=== PATIENT | male | born 1940 | race Caucasian/White ===

== ENCOUNTER → 2016-09-10 | Outpatient (CLI) | payer BC ==
[~2016-09-10] MED LIST: AMLO-114 PO; ASPI81TA25 PO; GEMF600T3 PO; INSDGI SC; INSUINJ14 SC; INSUINJ4 SQ; NVLG SC; NVLGI SC; SIMV80TA5 PO; VALS320T2 PO
[2016-09-10 12:54] LABS: BASO ABS # 0.06 K/uL (0-0.2); COMPLETE YES; HEMATOCRIT 42.2 % (42-52); IG% 0.2 %; LYMPH % 24.1 %; LYMPH ABS # 1.45 K/uL (1.2-3.4); MEAN CELL VOLUME 86.1 fL (80-100); MEAN CORPUSCULAR HEMOGLOBIN 29.4 pg (25-34); MEAN CORPUSCULAR HGB CONC 34.1 g/dl (32-36); MEAN PLATELET VOLUME 10.6 fL (7.4-10.4); NEUT % 54.7 %; PLATELET COUNT 292 K/uL (130-400); WHITE BLOOD COUNT 6.02 K/uL (4.8-10.8)
[2016-09-10 13:03] LABS: ALT/SGPT 27 U/L (12-78); BLOOD UREA NITROGEN 20 mg/dl (7-18); BUN/CREATININE RATIO 15.2 (10-20); CALCIUM 9.6 mg/dl (8.5-10.1); CARBON DIOXIDE 29 mmol/L (21-32); CHLORIDE 104 mmol/L (98-107); CHOLESTEROL 133 mg/dl (0-200); GLUCOSE 142 mg/dl (70-99); POTASSIUM 3.9 mmol/L (3.5-5.1); SODIUM 138 mmol/L (136-145); TRIGLYCERIDES 74 mg/dl (0-150); VERY LOW DENSITY LIPOPROT CALC 15 mg/dl
[2016-09-10 13:05] LABS: ESTIMATED AVERAGE GLUCOSE 128 mg/dl; HA1C FLAG Normal (Normal)
[2016-09-10 13:13] LABS: AST/SGOT 18 U/L (15-37); CHOLESTEROL/HDL RATIO 2.4; HDL CHOLESTEROL 55 mg/dl; LDL CHOLESTEROL CALCULATED 63 mg/dl
[2016-09-10 13:39] LABS: RATIO 4.3 mcg/mg (0-30.0)
== END | disposition home or self-care (01) ==
LOC: C.LAB1850 10:53
PROVIDERS: ATTEND Internal Medicine
DX: E11.9 Type 2 diabetes mellitus without complications (principal)

== ENCOUNTER → 2017-03-01 | Outpatient (CLI) | payer BC ==
[2017-03-01 18:01] LABS: ESTIMATED AVERAGE GLUCOSE 123 mg/dl; HA1C FLAG Normal (Normal)
--- NOTE | 2017-03-08 10:14 | CODING QUERY MEDICAL NECESSITY ---
CQSUPPORTING DIAGNOSIS NEEDED A supporting diagnosis is required for the test/procedure performed on this patient in order for us to be reimbursed by the patient's insurance. Please provide a supporting diagnosis for the following test/procedure listed below next to the test name along with your signature. *If there is no additional diagnosis for this patient that would support the following test/procedure please document that below next to the test/procedure. Test(s)/Procedure(s) that require a supporting diagnosis: DOS 03/08/17 GLYCATED HEMOGLOBIN TEST Provider Signature: Date: Thank you Sandee Rodriguez Health Information Management Once completed, please kindly fax back to [phone] For questions please call [phone]
== END | disposition home or self-care (01) ==
LOC: C.LAB1850 11:12
PROVIDERS: ATTEND Internal Medicine
DX: E78.5 Hyperlipidemia, unspecified (principal)

== ENCOUNTER 2017-03-02 00:55 | Emergency (ER) | payer BC ==
[~2017-03-02] VITALS: Ht 172.7 cm; Wt 83.7 kg
[~2017-03-02 00:55] MED LIST changes: -INSDGI SC; -NVLG SC
[2017-03-02 00:59] VITALS: TEMP 36.8; Ht 172.7 cm; Wt 83.7 kg
[2017-03-02] MEDS ORDERED: SODIUM CHLORIDE 0.9% 500ML 500 ML IV STA (01:09)
--- NOTE | 2017-03-02 01:11 | EMERGENCY ROOM VISIT NOTE ---
History Report prepared by Priscilla: Rose Mary Basilio Under the Supervision of: Dr. Choco Douglas M.D. First contact with patient: 01:02 Chief Complaint: IRREGULAR HEARTBEAT Stated Complaint: IRREGULAR HEART BEAT History of Present Illness The patient is a 76 year old male who presents to the Emergency Room with complaints of intermittent palpitations for the past few months. He reports he has experienced increased gas and a feeling of pressure in his abdomen recently , which seems to worsen his palpitations. Tonight, he couldn't sleep because of his symptoms, so he came to the ED. He denies any chest pain or shortness of breath. He is diabetic and states his BSG has been low recently. The patient reports he underwent a stress test over 30 years ago. He has no cardiac stents in place. He denies any history of leg swelling. Source of History: patient Onset: past few months Position: chest Timing: intermittent Modifying Factors (Worsening): other (gas and pressure in the abdomen) Associated Symptoms: No chest pain, No SOB Review of Systems See HPI for pertinent positives & negatives. A total of 10 systems reviewed and were otherwise negative. Past Medical & Surgical Medical Problems: (1) Diabetes (2) HTN (hypertension) (3) Vertigo Family History FH: HTN (hypertension) FH: cancer FH: diabetes mellitus FH: heart disease Social History Smoking Status: Former Smoker Alcohol Use: occasionally Drug Use: none Marital Status: Housing Status: lives with significant other Occupation Status: retired Current/Historical Medications Scheduled Amlodipine (Norvasc), 10 MG PO DAILY Aspirin (Aspir-Low), 1 TAB PO DAILY Gemfibrozil (Lopid), 1 TAB PO BID Insulin Aspart (Novolog), Unknown Dose SC TIDM Insulin Glargine (Lantus), 25 UNITS SC QPM Simvastatin (Zocor), 80 MG PO QPM Valsartan/Hctz (Diovan Hct 320MG/25MG), 1 TAB PO DAILY Allergies Coded Allergies: Lisinopril (Verified Allergy, Severe, LIP AND TONGUE SWELLING, 03/02/17) Physical Exam Vital Signs Date Time Temp Pulse Resp B/P (MAP) Pulse Ox O2 Delivery O2 Flow Rate FiO2 03/02/17 02:29 78 20 142/70 98 03/02/17 01:21 95 03/02/17 01:18 96 20 144/70 98 Room Air 9/19/17 01:18 Room Air 03/02/17 00:59 36.8 101 20 174/97 95 Room Air Physical Exam GENERAL: Patient is anxious appearing and in no acute distress. HEENT: No acute trauma, normocephalic atraumatic, mucous membranes moist, no nasal congestion, no scleral icterus. NECK: No stridor, no adenopathy, no meningismus, trachea is midline. LUNGS: No dyspnea. Clear to auscultation and equal bilaterally. No wheeze, no rhonchi. HEART: Mildly tachycardic heart rate, regular rhythm. No murmurs, rubs, gallops appreciated. ABDOMEN: Soft, nontender, bowel sounds positive, no masses appreciated, no peritonitis. BACK: No midline tenderness, no CVA tenderness EXTREMITIES: Normal motion all extremities, no cyanosis, no edema. NEUROLOGIC: Alert and oriented, no acute motor or sensory deficits, no focal weakness, cranial nerves grossly intact. SKIN: No rash, no jaundice, no diaphoresis. Medical Decision & Procedures ER Provider Diagnostic Interpretation: X ray results are stated below per my interpretation: Chest: 1 view: No infiltrate, no effusion, normal cardiac border. Laboratory Results 03/02/17 01:20 Red Blood Count 4.78, Mean Corpuscular Volume 86.0, Mean Corpuscular Hemoglobin 30.8, Mean Corpuscular Hemoglobin Concent 35.8, Mean Platelet Volume 9.9, Neutrophils (%) (Auto) 57.2, Lymphocytes (%) (Auto) 22.9, Monocytes (%) (Auto) 14.6, Eosinophils (%) (Auto) 4.6, Basophils (%) (Auto) 0.5, Neutrophils # (Auto ) 3.65, Lymphocytes # (Auto) 1.46, Monocytes # (Auto) 0.93, Eosinophils # (Auto ) 0.29, Basophils # (Auto) 0.03 03/02/17 01:20 Test 03/02/17 01:20 White Blood Count 6.37 K/uL (4.8-10.8) Red Blood Count 4.78 M/uL (4.7-6.1) Hemoglobin 14.7 g/dL (14.0-18.0) Hematocrit 41.1 % (42-52) Mean Corpuscular Volume 86.0 fL (80-100) Mean Corpuscular Hemoglobin 30.8 pg (25-34) Mean Corpuscular Hemoglobin Concent 35.8 g/dl (32-36) Platelet Count 297 K/uL (130-400) Mean Platelet Volume 9.9 fL (7.4-10.4) Neutrophils (%) (Auto) 57.2 % Lymphocytes (%) (Auto) 22.9 % Monocytes (%) (Auto) 14.6 % Eosinophils (%) (Auto) 4.6 % Basophils (%) (Auto) 0.5 % Neutrophils # (Auto) 3.65 K/uL (1.4-6.5) Lymphocytes # (Auto) 1.46 K/uL (1.2-3.4) Monocytes # (Auto) 0.93 K/uL (0.11-0.59) Eosinophils # (Auto) 0.29 K/uL (0-0.5) Basophils # (Auto) 0.03 K/uL (0-0.2) RDW Standard Deviation 40.4 fL (36.4-46.3) RDW Coefficient of Variation 12.7 % (11.5-14.5) Immature Granulocyte % (Auto) 0.2 % Immature Granulocyte # (Auto) 0.01 K/uL (0.00-0.02) Anion Gap 10.0 mmol/L (3-11) Est Creatinine Clear Calc Drug Dose 55.2 ml/min Estimated GFR () 67.7 Estimated GFR (Non- 58.4 BUN/Creatinine Ratio 19.8 (10-20) Calcium Level 10.0 mg/dl (8.5-10.1) Magnesium Level 2.3 mg/dl (1.8-2.4) Total Bilirubin 0.4 mg/dl (0.2-1) Direct Bilirubin < 0.1 mg/dl (0-0.2) Aspartate Amino Transf (AST/SGOT) 18 U/L (15-37) Alanine Aminotransferase (ALT/SGPT) 23 U/L (12-78) Alkaline Phosphatase 93 U/L (45-117) Total Creatine Kinase 173 U/L (39-308) Creatine Kinase MB 2.5 ng/ml (0.5-3.6) Creatine Kinase MB Ratio 1.4 (0-3.0) Troponin I < 0.015 ng/ml (0-0.045) Total Protein 8.3 gm/dl (6.4-8.2) Albumin 4.6 gm/dl (3.4-5.0) Lipase 233 U/L (73-393) Thyroid Stimulating Hormone (TSH) 2.180 uIu/ml (0.300-4.500) Laboratory results as reviewed by me. Medications Administered Medications (Trade) Dose Ordered Sig/Ilz Route Start Time Stop Time Status Last Admin Dose Admin Sodium Chloride 500 ml @ 999 mls/hr Q31M STAT IV 03/02/17 01:09 03/02/17 01:39 DC 03/02/17 01:21 999 MLS/HR ECG Indication: palpitations Rate (beats per minute): 101 Rhythm: sinus tachycardia Findings: PAC, no acute ischemic change ED Course 0103: The patient was evaluated in room B3. A complete history and physical exam was performed. 0109: NSS 500 ml @ 999 mls/hr IV. 0215: I reevaluated the patient. He is feeling much better and his heart rate is in the 80s. He admits he has not been drinking much fluid over the past few days. He will follow up with Dr. Garnett on . I discussed his results and he verbalized complete understanding and agreement. Medical Decision Differential: NSR, SVT, PACs, PVCs, Cardiac Dysrhythmia, Endocrine Dysfunction, Electrolyte/Metabolic Abnormality, Pulmonary Embolism, Infectious, GI, amongst other pathologies entertained. 76 yr old male arrives with complaint of tachycardia with palpations. Notes chronic burping/gas which sometimes aggravates tachycardia. By exam looks well and in no distress other than a bit anxious. Ongoing for quite some time thus with no ischemia on EKG and normal Trop I do not feel this is ACS. HR improved greatly with fluids and re-assurance. BUN is a bit bumped and notes he never drinks enough fluids. Is on diuretic which may be contributing a bit. TSH, Mag, electrolytes look good. No evidence infection. CXR unremarkable. Patient stable and in no distress. I feel that he is safe for outpatient follow up already planned for 2 days from now. Reviewed symptoms requiring return. Medication Reconcilliation Current Medication List: was personally reviewed by me Blood Pressure Screening Patient's blood pressure: Elevated blood pressure Blood pressure disposition: Referred to PCP Impression Primary Impression: Intermittent palpitations Additional Impression: Dehydration Scribe Attestation The scribe's documentation has been prepared under my direction and personally reviewed by me in its entirety. I confirm that the note above accurately reflects all work, treatment, procedures, and medical decision making performed by me. Departure Information Dispostion Home / Self-Care Referrals Fernando Garnett M.D. (PCP) Patient Instructions ED Palpitations, My [facility] Health Problem Qualifiers
[2017-03-02 01:33] LABS: BASO % 0.5 %; BASO ABS # 0.03 K/uL (0-0.2); COMPLETE YES; EOS % 4.6 %; HEMATOCRIT 41.1 % (42-52); IG% 0.2 %; LYMPH % 22.9 %; LYMPH ABS # 1.46 K/uL (1.2-3.4); MEAN CORPUSCULAR HEMOGLOBIN 30.8 pg (25-34); MEAN CORPUSCULAR HGB CONC 35.8 g/dl (32-36); MEAN PLATELET VOLUME 9.9 fL (7.4-10.4); MONO % 14.6 %; NEUT % 57.2 %; PLATELET COUNT 297 K/uL (130-400); RED BLOOD COUNT 4.78 M/uL (4.7-6.1); WHITE BLOOD COUNT 6.37 K/uL (4.8-10.8)
[2017-03-02 01:52] LABS: ALT/SGPT 23 U/L (12-78); AST/SGOT 18 U/L (15-37); BLOOD UREA NITROGEN 24 mg/dl (7-18); BUN/CREATININE RATIO 19.8 (10-20); CARBON DIOXIDE 27 mmol/L (21-32); CHLORIDE 103 mmol/L (98-107); GLUCOSE 89 mg/dl (70-99); MAGNESIUM 2.3 mg/dl (1.8-2.4); POTASSIUM 3.5 mmol/L (3.5-5.1); SODIUM 140 mmol/L (136-145)
[2017-03-02 02:01] LABS: ALKALINE PHOSPHATASE 93 U/L (45-117); CKMB/CK RATIO 1.4 (0-3.0)
[2017-03-02 02:29] VITALS: BP 142/70; PULSE 78; O2SAT 98
[2017-03-02] MEDS ORDERED: INSDGI SC (02:39)
[2017-03-02] MEDS ORDERED: NVLG SC (02:39)
--- NOTE | 2017-03-02 06:30 | DIAGNOSTIC IMAGING REPORT ---
CHEST ONE VIEW PORTABLE CLINICAL HISTORY: Chest Pain COMPARISON STUDY: 06/05/2015 FINDINGS: The cardiac and mediastinal contours are normal. There is no evidence of focal pulmonary consolidation. There is no evidence of failure. No pleural effusions are visualized.[ IMPRESSION: No active disease in the chest. Electronically signed by: Ishan Em M.D. 03/02/2017 6:29 AM Dictated Date/Time: 03/02/2017 6:28 AM
== END 2017-03-02 02:31 | disposition home or self-care (01) ==
LOC: C.EDB 00:57
DX: R00.2 Palpitations (principal); E86.0 Dehydration; E11.9 Type 2 diabetes mellitus without complications; I10 Essential (primary) hypertension; Z87.891 Personal history of nicotine dependence; Z79.82 Long term (current) use of aspirin; Z79.4 Long term (current) use of insulin; Z79.899 Other long term (current) drug therapy; Z88.8 Allergy status to other drugs, medicaments and biological substances; Z82.49 Family history of ischemic heart disease and other diseases of the circulatory system; Z80.9 Family history of malignant neoplasm, unspecified; Z83.3 Family history of diabetes mellitus

== ENCOUNTER → 2017-06-16 | Outpatient (CLI) | payer BC ==
[~2017-06-16] MED LIST changes: -AMLO-114 PO; +AMLO10TA3 PO; -GEMF600T3 PO; +GEMF600T5 PO; +INSDGI SC; -INSUINJ14 SC; -INSUINJ4 SQ; +NVLG SC; -NVLGI SC; -SIMV80TA5 PO; +SIMV80TA7 PO
[2017-06-16 12:17] LABS: BASO % 0.5 %; BASO ABS # 0.03 K/uL (0-0.2); EOS % 5.1 %; EOS ABS # 0.32 K/uL (0-0.5); HEMATOCRIT 42.6 % (42-52); HEMOGLOBIN 14.5 g/dL (14.0-18.0); IG# 0.01 K/uL (0.00-0.02); LYMPH % 20.4 %; LYMPH ABS # 1.27 K/uL (1.2-3.4); MEAN CELL VOLUME 87.1 fL (80-100); MEAN CORPUSCULAR HEMOGLOBIN 29.7 pg (25-34); MEAN PLATELET VOLUME 10.5 fL (7.4-10.4); MONO % 12.7 %; MONO ABS # 0.79 K/uL (0.11-0.59); NEUT % 61.1 %; NEUT ABS # 3.82 K/uL (1.4-6.5); PLATELET COUNT 298 K/uL (130-400); RED CELL DISTRIBUTION WIDTH SD 41.5 fL (36.4-46.3); WHITE BLOOD COUNT 6.24 K/uL (4.8-10.8)
[2017-06-16 12:26] LABS: HEMOGLOBIN A1C 6.1 % (4.5-5.6)
[2017-06-16 15:44] LABS: ALT/SGPT 24 U/L (12-78); AST/SGOT 17 U/L (15-37); BLOOD UREA NITROGEN 18 mg/dl (7-18); CALCIUM 9.6 mg/dl (8.5-10.1); CARBON DIOXIDE 28 mmol/L (21-32); CHOLESTEROL 142 mg/dl (0-200); CREATININE 1.16 mg/dl (0.60-1.40); GLUCOSE 132 mg/dl (70-99); LDL CHOLESTEROL CALCULATED 64 mg/dl; POTASSIUM 3.4 mmol/L (3.5-5.1); SODIUM 136 mmol/L (136-145)
--- NOTE | 2017-06-22 10:37 | CODING QUERY MEDICAL NECESSITY ---
CQSUPPORTING DIAGNOSIS NEEDED A supporting diagnosis is required for the test/procedure performed on this patient in order for us to be reimbursed by the patient's insurance. Please provide a supporting diagnosis for the following test/procedure listed below next to the test name along with your signature. *If there is no additional diagnosis for this patient that would support the following test/procedure please document that below next to the test/procedure. Test(s)/Procedure(s) that require a supporting diagnosis: DOS 06/16/17 GLYCATED HEMOGLOBIN TEST LIPID TEST Provider Signature: Date: Thank you Sandee Rodriguez Health Information Management Once completed, please kindly fax back to [phone] For questions please call [phone]
== END | disposition home or self-care (01) ==
LOC: C.LAB1850 10:40
PROVIDERS: ATTEND Internal Medicine
DX: R00.2 Palpitations (principal); E11.9 Type 2 diabetes mellitus without complications; E78.5 Hyperlipidemia, unspecified

== ENCOUNTER → 2017-09-20 | Outpatient (CLI) | payer BC ==
[~2017-09-20] MED LIST changes: +AMLO-114 PO; -AMLO10TA3 PO; +GEMF600T3 PO; -GEMF600T5 PO; +SIMV80TA5 PO; -SIMV80TA7 PO
[2017-09-20 14:02] LABS: HEMOGLOBIN A1C 6.4 % (4.5-5.6)
== END | disposition home or self-care (01) ==
LOC: C.LAB1850 11:50
PROVIDERS: ATTEND Internal Medicine
DX: M54.30 Sciatica, unspecified side (principal)